=== PATIENT | male | born 1955 | race Caucasian/White ===

== ENCOUNTER → 2017-04-30 | Outpatient (CLI) | payer BC ==
[~2017-04-30] MED LIST: ASPIRIN EC81 M1 PO; LEVOTHYROXINE150 MCG PO; METOPROLOL SUCC25 MG PO
--- NOTE | ~2017-04-30 | CT134 ---
[facility] A Service of [facility] & [facility] RADIOLOGY TEXT RESULTS PATIENT: SCHUYLER TAVERA LOCATION: CIVR : 51 UNIT #: [id number] AGE: [address]: Wilma Beatty MD SEX: M ORDER DR: [id number] [id number] [facility]. [place], [place] [address] [id number] O MR#: [id number] Acc #: [id number] NAME: SCHUYLER TAVERA. : 1955 SEX: M STUDY DATE/TIME: 04/30/2017 8:01 UNIT: CIVR ROOM: STUDY DESCRIPTION: CT Guide Attending Physician: Wilma Beatty M.D. Referring Physician: Wilma Beatty M.D. Ordering Physician: Wilma Beatty M.D. Primary Care Physician: Ruben Paulino M.D. MEDICAL IMAGING REPORT This report is preliminary unless electronic signature is present EXAM CT guided bone marrow biopsy INDICTIONS Erythrocytosis/polycythemia PROCEDURE: The risks, benefits and alternatives to the procedure were explained to the patient, signed, informed consent was obtained. The patient was placed prone on the CT scanner gantry. A preliminary CT scan was performed through the region of interest. An appropriate site overlying the left iliac vein was selected. The overlying skin was marked. The patient was prepped and draped in the usual sterile fashion. A time-out was performed as per protocol. Skin and subcutaneous tissues were anesthetized with buffered lidocaine and a bone marrow biopsy needle was advanced into the left iliac bone. Repeat CT scan confirmed appropriate position of the needle which was then advanced into the left iliac bone. Bone marrow aspirate was obtained. The needle was advanced and then removed which shows an adequate core sample. Manual pressure was applied until hemostasis was obtained. The patient tolerated the procedure well and there were no immediate complications. The patient did receive moderate sedation consisting of 4 mg of Versed and 150 mcg of fentanyl and I supervised the IVR nurse monitoring the patient's vital signs for a total of 10 minutes of face to face time. IMPRESSION Technically successful CT guided bone marrow biopsy as noted above. CT used during the procedure and permanent images were saved. [facility] A Service of [facility] & [facility] RADIOLOGY TEXT RESULTS PATIENT: SCHUYLER TAVERA LOCATION: [facility] : 51 UNIT #: [id number] AGE: [address]: Wilma Beatty MD SEX: M ORDER DR: Dictated by... Elaine Constantino M.D. THIS IS AN ELECTRONICALLY VERIFIED REPORT Elaine Constantino M.D. at 05/02/2017 11:19 AM FARNAZ/ruchi TD: 05/02/2017 08:44 JOB #: [id number] MEDICAL IMAGING REPORT Page 1 of 1 COPY
[2017-04-30 07:11] LABS: HEMATOCRIT 50.9 % (38.0-50.0); HEMOGLOBIN 16.8 gm/dL (13.0-16.0); MEAN CELL VOLUME 92.3 FL (83-96); MEAN CORPUSCULAR HEMOGLOBIN 30.5 PG (28-34); MEAN PLATELET VOLUME 9.3 FL (6.5-11.5); RED BLOOD COUNT 5.51 X10e (3.90-5.60); RED CELL DISTRIBUTION WIDTH 13.4 % (11.0-15.5); WHITE BLOOD COUNT 11.4 X10e3 (4.0-10.5)
[2017-04-30 07:32] LABS: INR 1.1; PARTIAL THROMBOPLASTIN TIME 25.9 SECONDS (23.5-31.3); PROTHROMBIN TIME (PATIENT) 11.3 SECONDS (9.6-11.5)
== END | disposition home or self-care (01) ==
LOC: CIVR 06:40
PROVIDERS: Internal Medicine Hematology
DX: D75.1 Secondary polycythemia (principal); G47.30 Sleep apnea, unspecified
CPT/HCPCS: 38221; G0364; 36415; 77012; 85027; 85610; 85730; 88305; 88311; 99144; 99152; 99153; J2250; J3010